=== PATIENT | female | born 1980 | race Caucasian/White ===

== ENCOUNTER 2018-11-14 11:21 | Emergency (ER) | payer MEDICAID ==
[~2018-11-14] VITALS: Ht 157.5 cm; Wt 85.7 kg
[2018-11-14 11:33] VITALS: BP 131/78; Ht 157.5 cm; Wt 85.7 kg
== END 2018-11-14 14:40 | disposition home or self-care (01) ==
LOC: ED 11:21
DX: M79.602 Pain in left arm (principal)